=== PATIENT | male | born 1960 | race Two or more races ===

== ENCOUNTER 2019-01-21 00:29 | Emergency (ER) | payer SELFPAY ==
[~2019-01-21] VITALS: Ht 177.8 cm; Wt 86.2 kg
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
[2019-01-21] MEDS ORDERED: LORAZEPAM INJ 2 MG/ML VIAL ONE (01:58)
[2019-01-21] MEDS ORDERED: HALOPERIDOL LACTATE INJ 5 MG/ML VIAL ONE (02:01)
--- NOTE | 2019-01-21 05:37 | NUR ---
AMBULATED PT BUT STILL UNABLE TO AMBULATE ON HIS OWN. PT IS STILL UNSTEADY ON HIS GAIT.
--- NOTE | 2019-01-21 09:08 | NUR ---
Patient given written and verbal discharge instructions. Patient verbalizes understanding of instructions. Patient is ambulatory with steady gait. Refuses offer of residential placement. Patient given list of available shelters in surrounding area, provided w . name band removed, patient discharged in proper clothing.
[2019-01-21 09:09] VITALS: BP 133/74
--- NOTE | 2019-01-21 09:09 | NUR ---
patient a/ox4, ambulates with steady gait. Breathing even and unlabored, no sob noted. Denies pain and discomfort. Food tray and tap card provided. Patient is looking for his belongings, but no backpack found in our locker area. Patient discharged to home in stable condition. Written and verbal after care instructions given. Patient verbalizes understanding of instruction.
== END 2019-01-21 09:09 | disposition home or self-care (01) ==
LOC: ER 00:29
DX: F10.129 Alcohol abuse with intoxication, unspecified (principal); R51 Headache; Y90.7 Blood alcohol level of 200-239 mg/100 ml
CPT/HCPCS: 36415; 70450; 80307; 82962; 99284; J7030; G0480; J1630; J2060